=== PATIENT | female | born 1960 | race Caucasian/White ===

== ENCOUNTER 2021-02-01 06:29 | Day surgery (SDC) | payer MEDICAID ==
[~2021-02-01] VITALS: Ht 165.1 cm; Wt 79.0 kg
[~2021-02-01 06:29] MED LIST: ATOR40TA78 PO
[2021-02-01] MEDS ORDERED: KETOROLAC 60 MG/2 ML ONE (06:52)
[2021-02-01] MEDS ORDERED: TRANEXAMIC ACID 100 MG/ML, 10ML ONE ×2 (06:52)
[2021-02-01] MEDS ORDERED: ROPIvacaine/PF 0.5%, 30 ML ONE (06:53)
[2021-02-01] MEDS ORDERED: SODIUM CHLORIDE 0.9% 50 ML ONE (06:53)
[2021-02-01] MEDS ORDERED: EPINEPHRINE 1 MG/ML, 1ML ONE (06:53)
[2021-02-01] MEDS ORDERED: VANCOMYCIN 1,000 MG ONE (06:53)
[2021-02-01] MEDS ORDERED: ROPIvacaine/PF 0.5%, 20 ML ONE (06:59)
[2021-02-01] MEDS ORDERED: SENNA/DOCUSATE TABLET PO PRN (07:00)
[2021-02-01] MEDS ORDERED: BISACODYL 10 MG SUPP PR PRN (07:00)
[2021-02-01] MEDS ORDERED: ONDANSETRON 2MG/ML, 2ML IV PRN (07:00)
[2021-02-01] MEDS ORDERED: OXYcodone IR 5MG TABLET PO PRN (07:00)
[2021-02-01] MEDS ORDERED: ACETAMINOPHEN 650 MG/20.3 ML UDC PO PRN (07:00)
[2021-02-01] MEDS ORDERED: ZOLPIDEM 5MG TABLET PO PRN (07:00)
[2021-02-01] MEDS ORDERED: NS + 20MEQ KCL 1,000 ML IV SCH (07:00)
[2021-02-01] MEDS ORDERED: CEFAZOLIN PMX 2GM/50ML 50 ML IVPB SCH (07:00)
[2021-02-01] MEDS ORDERED: HYDROcodone/APAP 5/325 TABLET PO PRN (07:00)
[2021-02-01] MEDS ORDERED: ONDANSETRON 4 MG TABLET PO PRN (07:00)
[2021-02-01] MEDS ORDERED: DIPHENHYDRAMINE 25 MG CAPSULE PO PRN (07:00)
[2021-02-01] MEDS ORDERED: MAGNESIUM HYDROXIDE 8%, 30ML UDC PO PRN (07:00)
[2021-02-01] MEDS ORDERED: MIDAZOLAM 1 MG/ML, 2ML ONE (07:12)
[2021-02-01] MEDS ORDERED: FENTANYL PF 250 MCG/5ML ONE ×3 (07:12→08:52)
[2021-02-01] MEDS ORDERED: ONDANSETRON 2MG/ML, 2ML ONE (07:13)
[2021-02-01] MEDS ORDERED: ROCURONIUM 10MG/ML,5ML ONE (07:13)
[2021-02-01] MEDS ORDERED: NEOSTIGMINE 1 MG/ML, 10ML ONE (07:13)
[2021-02-01] MEDS ORDERED: CEFAZOLIN 1,000 MG ONE (07:13)
[2021-02-01] MEDS ORDERED: GLYCOPYRROLATE 0.2MG/1ML, 5ML ONE (07:13)
[2021-02-01] MEDS ORDERED: PROPOFOL 10 MG/ML, 20ML ONE (07:13)
[2021-02-01 07:14] VITALS: BP 147/82
[2021-02-01] MEDS ORDERED: CHLORHEXIDINE 15 ML UDC ONE (07:19)
[2021-02-01 07:25] LABS: BASOPHILS % (AUTO) 1 % (0-1); EOSINOPHILS % (AUTO) 1 % (1-7); LYMPHOCYTES % (AUTO) 30 % (22-44); MEAN CORPUSCULAR HGB CONC 33.7 g/dL (32.4-35.8); MEAN PLATELET VOLUME 7.4 fL (7.4-10.4); MONOCYTES % (AUTO) 8 % (2-9); NEUTROPHILS % (AUTO) 61 % (42-75); PLATELET COUNT 243 x10^3/uL (130-400); RED BLOOD COUNT 5.28 x10^6/uL (3.82-5.3); RED CELL DISTRIBUTION WIDTH 14.7 % (9.6-15.2)
[2021-02-01 07:28] LABS: MD NO
[2021-02-01] MEDS ORDERED: GABAPENTIN 300 MG CAPSULE PO ONE (07:30)
[2021-02-01] MEDS ORDERED: ACETAMINOPHEN 500 MG TABLET PO ONE (07:30)
[2021-02-01] MEDS ORDERED: CHLORHEXIDINE 15 ML UDC PO ONE (07:30)
[2021-02-01] MEDS ORDERED: VANCOMYCIN PER PHARMACY MC PRN (07:30)
[2021-02-01 07:37] LABS: ALANINE AMINOTRANSFERASE 21 U/L (12-78); ALBUMIN 4.1 g/dL (3.4-5.0); ANION GAP 4 mmol/L (5-15); CALCIUM 9.4 mg/dL (8.5-10.1); CHLORIDE 111 mmol/L (98-107); CREATININE 0.67 mg/dL (0.55-1.02)
[2021-02-01 07:39] LABS: ALKALINE PHOSPHATASE 108 U/L (45-117); BILIRUBIN,TOTAL 0.4 mg/dL (0.2-1.0); TOTAL PROTEIN 7.4 g/dL (6.4-8.2)
[2021-02-01 07:45] LABS: INTERNATIONAL NORMALIZED RATIO 0.97 (0.93-1.1); PROTHROMBIN TIME 10.4 Seconds (9.6-11.5)
[2021-02-01] MEDS ORDERED: VANCOMYCIN 1,200 MG in SODIUM CHLORIDE 0.9% 250 ML IV ONE (08:00)
[2021-02-01] MEDS ORDERED: hydrALAzine 20 MG/ML, 1ML IV PRN (08:00)
[2021-02-01] MEDS ORDERED: HALOPERIDOL 5 MG/ML IV PRN (08:00)
[2021-02-01] MEDS ORDERED: LABETALOL 5MG/ML, 20ML IV PRN (08:00)
[2021-02-01] MEDS ORDERED: MEPERIDINE/PF 25MG/0.5ML IVPush PRN (08:00)
[2021-02-01] MEDS ORDERED: morphine SULFATE 10 MG/ML, 1ML IVPush PRN (08:00)
[2021-02-01] MEDS ORDERED: PROMETHAZINE 25 MG/ML, 1ML IVPush PRN (08:00)
[2021-02-01] MEDS ORDERED: HYDROmorphone 1 MG/ML, 1ML INJ IVPush PRN (08:00)
[2021-02-01] MEDS ORDERED: OXYcodone 5 MG/5 ML ORAL.SOL UDC PO PRN (08:00)
[2021-02-01] MEDS ORDERED: ACETAMINOPHEN 325 MG TABLET PO PRN (08:00)
[2021-02-01] MEDS ORDERED: DEXAMETHASONE 4 MG/ML, 1ML ONE (08:08)
[2021-02-01] MEDS ORDERED: PHENYLEPHRINE 10 MG/ML ONE (08:08)
[2021-02-01] MEDS ORDERED: DOCUSATE 100 MG CAPSULE PO SCH (09:00)
[2021-02-01] MEDS ORDERED: FENTANYL PF 100 MCG/2ML ONE (09:35)
[2021-02-01] MEDS: FENTANYL PF 100 MCG/2ML IV PRN ×2 (09:35→09:50)
[2021-02-01] MEDS ORDERED: OXYcodone 5 MG/5 ML ORAL.SOL UDC ONE (10:00)
[2021-02-01] MEDS ORDERED: ASPIRIN 81 MG TABLET EC PO SCH (18:00)
[2021-02-02] MEDS ORDERED: DEXAMETHASONE 4 MG/ML, 1ML IVPush SCH (06:00)
== END 2021-02-01 16:30 | disposition home or self-care (01) ==
LOC: OUT 06:29
PROVIDERS: ATTEND Orthopaedic Surgery
DX: M16.12 Unilateral primary osteoarthritis, left hip (principal); M87.052 Idiopathic aseptic necrosis of left femur; M25.752 Osteophyte, left hip; E78.5 Hyperlipidemia, unspecified; Z20.822 Contact with and (suspected) exposure to COVID-19; Z79.01 Long term (current) use of anticoagulants; Z79.899 Other long term (current) drug therapy
CPT/HCPCS: 27130; 36415; 72170; 73501; 80053; 83036; 85025; 85610; 86850; 86900; 87081; 87635; 88304; 93005; 97162; 97165; C1713; C1776; J0171; J0690; J1100; J1885; J2250; J2370; J2405; J2704; J2710; J2795; J3010; J3370; J7050; 76000

== ENCOUNTER 2021-07-05 06:28 | Day surgery (SDC) | payer MEDICAID ==
[~2021-07-05] VITALS: Ht 167.6 cm; Wt 83.4 kg
[2021-07-05] MEDS ORDERED: VANCOMYCIN PER PHARMACY MC STA (06:46)
[2021-07-05] MEDS ORDERED: CHLORHEXIDINE 15 ML UDC PO ONE (07:00)
[2021-07-05] MEDS ORDERED: SENNA/DOCUSATE TABLET PO PRN (07:00)
[2021-07-05] MEDS ORDERED: DIPHENHYDRAMINE 25 MG CAPSULE PO PRN (07:00)
[2021-07-05] MEDS ORDERED: LACTATED RINGERS 1,000 ML IV SCH (07:00)
[2021-07-05] MEDS ORDERED: OXYcodone IR 5MG TABLET PO PRN (07:00)
[2021-07-05] MEDS ORDERED: ONDANSETRON 2MG/ML, 2ML IV PRN (07:00)
[2021-07-05] MEDS ORDERED: NS + 20MEQ KCL 1,000 ML IV SCH (07:00)
[2021-07-05] MEDS ORDERED: BISACODYL 10 MG SUPP PR PRN (07:00)
[2021-07-05] MEDS ORDERED: CEFAZOLIN PMX 2GM/50ML 50 ML IVPB SCH (07:00)
[2021-07-05] MEDS ORDERED: ZOLPIDEM 5MG TABLET PO PRN (07:00)
[2021-07-05] MEDS ORDERED: MAGNESIUM HYDROXIDE 8%, 30ML UDC PO PRN (07:00)
[2021-07-05] MEDS ORDERED: HYDROcodone/APAP 5/325 TABLET PO PRN (07:00)
[2021-07-05] MEDS ORDERED: ACETAMINOPHEN 650 MG/20.3 ML UDC PO PRN (07:00)
[2021-07-05] MEDS ORDERED: PLEASE ENTER HEIGHT AND WEIGHT MC SCH (07:30)
[2021-07-05 07:31] VITALS: BP 143/83
[2021-07-05] MEDS ORDERED: GABA-827 PO (07:39)
[2021-07-05] MEDS ORDERED: MELO7.5T31 PO (07:39)
[2021-07-05] MEDS ORDERED: ESTRADIOL (07:39)
[2021-07-05] MEDS ORDERED: ROPIvacaine/PF 0.2%, 20 ML ONE (07:47)
[2021-07-05] MEDS ORDERED: VANCOMYCIN 1,000 MG ONE (07:47)
[2021-07-05] MEDS ORDERED: TRANEXAMIC ACID 100 MG/ML, 10ML ONE ×2 (07:47)
[2021-07-05] MEDS ORDERED: MIDAZOLAM 1 MG/ML, 2ML ONE (07:47)
[2021-07-05] MEDS ORDERED: SODIUM CHLORIDE 0.9% 50 ML ONE (07:47)
[2021-07-05] MEDS ORDERED: KETOROLAC 30 MG/1 ML ONE (07:47)
[2021-07-05 07:48] LABS: ALANINE AMINOTRANSFERASE 28 U/L (12-78); ANION GAP 6 mmol/L (5-15); CALCIUM 9.7 mg/dL (8.5-10.1); CHLORIDE 105 mmol/L (98-107); CREATININE 0.97 mg/dL (0.55-1.02)
[2021-07-05] MEDS ORDERED: FENTANYL PF 250 MCG/5ML ONE (07:48)
[2021-07-05] MEDS ORDERED: EPINEPHRINE 1 MG/ML, 1ML ONE (07:48)
[2021-07-05 07:50] LABS: ALKALINE PHOSPHATASE 115 U/L (45-117); BILIRUBIN,TOTAL 0.2 mg/dL (0.2-1.0); TOTAL PROTEIN 7.3 g/dL (6.4-8.2)
[2021-07-05] MEDS ORDERED: PROPOFOL 10 MG/ML, 20ML ONE (07:57)
[2021-07-05] MEDS ORDERED: ROCURONIUM 10MG/ML,5ML ONE (07:58)
[2021-07-05] MEDS ORDERED: ONDANSETRON 4 MG TABLET PO PRN (08:00)
[2021-07-05] MEDS ORDERED: VANCOMYCIN 2,100 MG in SODIUM CHLORIDE 0.9% 500 ML IV ONE (08:00)
[2021-07-05] MEDS ORDERED: ACETAMINOPHEN 500 MG TABLET PO ONE (08:00)
[2021-07-05] MEDS ORDERED: GABAPENTIN 300 MG CAPSULE PO ONE (08:00)
[2021-07-05] MEDS ORDERED: ROPIvacaine/PF 0.5%, 30 ML ONE (08:04)
[2021-07-05] MEDS ORDERED: CEFAZOLIN 1,000 MG ONE ×2 (08:37)
[2021-07-05] MEDS ORDERED: DEXAMETHASONE 4 MG/ML, 1ML ONE (08:38)
[2021-07-05] MEDS ORDERED: DOCUSATE 100 MG CAPSULE PO SCH (09:00)
[2021-07-05] MEDS ORDERED: ONDANSETRON 2MG/ML, 2ML ONE (09:07)
[2021-07-05] MEDS ORDERED: GLYCOPYRROLATE 0.2MG/1ML, 5ML ONE (09:23)
[2021-07-05] MEDS ORDERED: ONDANSETRON 2MG/ML, 2ML IVPush PRN (09:30)
[2021-07-05] MEDS ORDERED: LABETALOL 5MG/ML, 20ML IV PRN (09:30)
[2021-07-05] MEDS ORDERED: hydrALAzine 20 MG/ML, 1ML IV PRN (09:30)
[2021-07-05] MEDS ORDERED: PROMETHAZINE 25 MG/ML, 1ML IVPush PRN (09:30)
[2021-07-05] MEDS ORDERED: DIAZEPAM 5 MG/ML, 2ML IVPush PRN (09:30)
[2021-07-05] MEDS ORDERED: LORazepam 2 MG/ML, 1ML IVPush PRN (09:30)
[2021-07-05] MEDS ORDERED: MEPERIDINE/PF 25MG/0.5ML IVPush PRN (09:30)
[2021-07-05] MEDS ORDERED: OXYcodone 5 MG/5 ML ORAL.SOL UDC PO PRN (09:30)
[2021-07-05] MEDS ORDERED: OXYcodone 5 MG/5 ML ORAL.SOL UDC ONE (10:13)
[2021-07-05] MEDS ORDERED: FENTANYL PF 100 MCG/2ML ONE ×2 (10:13→10:21)
[2021-07-05] MEDS: FENTANYL PF 100 MCG/2ML IV PRN ×4 (10:14→10:27)
[2021-07-05] MEDS ORDERED: DIAZEPAM 5 MG/ML, 2ML ONE (10:21)
[2021-07-05] MEDS ORDERED: HYDROmorphone 2 MG/ML, 1ML ONE (10:21)
[2021-07-05] MEDS: HYDROmorphone 1 MG/ML, 1ML INJ IVPush PRN ×3 (10:55→11:10)
[2021-07-05] MEDS ORDERED: ASPIRIN 81 MG TABLET EC PO SCH (18:00)
[2021-07-06] MEDS ORDERED: DEXAMETHASONE 4 MG/ML, 1ML IVPush SCH (06:00)
== END 2021-07-05 16:30 | disposition home or self-care (01) ==
LOC: OUT 06:28 → EDSTATUS 11:00 → OUT 16:30
PROVIDERS: ATTEND Orthopaedic Surgery
DX: M16.11 Unilateral primary osteoarthritis, right hip (principal); M25.751 Osteophyte, right hip; I10 Essential (primary) hypertension; Z20.822 Contact with and (suspected) exposure to COVID-19; Z79.899 Other long term (current) drug therapy
CPT/HCPCS: 27130; 36415; 72170; 73501; 80053; 87635; 93005; 97116; 97162; 97166; C1713; C1776; J0171; J0690; J1100; J1170; J1885; J2250; J2405; J2704; J2795; J3010; J3360; J3370; J7040; 76000